=== PATIENT | female | born 1950 | race Caucasian/White ===

== ENCOUNTER 2016-06-24 18:29 | Emergency (ER) | payer MEDICARE, OTHER | END 2016-06-24 22:55 | disposition home or self-care (01) | LOC: ER 18:29 | DX: R41.82 Altered mental status, unspecified (principal); M79.601 Pain in right arm; R22.41 Localized swelling, mass and lump, right lower limb; E03.9 Hypothyroidism, unspecified; F32.9 Major depressive disorder, single episode, unspecified; I10 Essential (primary) hypertension; Z87.891 Personal history of nicotine dependence; Z90.49 Acquired absence of other specified parts of digestive tract; Z90.710 Acquired absence of both cervix and uterus | CPT/HCPCS: 36415; 96360; 96361; Q9967 ==

== ENCOUNTER 2016-07-21 16:05 | Emergency (ER) | payer MEDICARE, OTHER | END 2016-07-21 17:54 | disposition home or self-care (01) | LOC: ER 16:05 | DX: I10 Essential (primary) hypertension (principal); E03.9 Hypothyroidism, unspecified; E78.5 Hyperlipidemia, unspecified; F32.9 Major depressive disorder, single episode, unspecified; F41.9 Anxiety disorder, unspecified; Z90.49 Acquired absence of other specified parts of digestive tract; Z90.710 Acquired absence of both cervix and uterus; Z79.82 Long term (current) use of aspirin; Z88.2 Allergy status to sulfonamides; Z87.891 Personal history of nicotine dependence | CPT/HCPCS: 36415 ==

== ENCOUNTER 2016-07-31 13:27 | Emergency (ER) | payer MEDICARE, OTHER | END 2016-07-31 17:13 | disposition home or self-care (01) | LOC: ER 13:27 | DX: K44.9 Diaphragmatic hernia without obstruction or gangrene (principal); F32.9 Major depressive disorder, single episode, unspecified; I10 Essential (primary) hypertension; E78.5 Hyperlipidemia, unspecified; E03.9 Hypothyroidism, unspecified; Z90.49 Acquired absence of other specified parts of digestive tract; Z90.710 Acquired absence of both cervix and uterus; Z87.891 Personal history of nicotine dependence; Z79.82 Long term (current) use of aspirin; Z79.899 Other long term (current) drug therapy; Z88.2 Allergy status to sulfonamides | CPT/HCPCS: 36415 ==